=== PATIENT | female | born 1985 | race Caucasian/White ===

== ENCOUNTER 2017-05-07 01:11 | Inpatient (IN) | payer OTHER ==
[~2017-05-07] VITALS: Ht 177.8 cm; Wt 89.4 kg
[2017-05-07] MEDS ORDERED: Lactated Ringer's 1,000 ML IV PRN (08:21)
[2017-05-07] MEDS ORDERED: fentaNYL-PF 50 mCg/mL 2 mL Inj IVPUSH PRN ×2 (08:25→23:00)
[2017-05-07] MEDS ORDERED: Sodium Chloride LOK Flush 10 mL Syringe IVFLUSH PRN (08:25)
[2017-05-07] MEDS ORDERED: Oxytocin 30 Units/500 mL LR 30 UNITS in IV Premix 1 EACH IV PRN (08:25)
[2017-05-07] MEDS ORDERED: Carboprost 250 mCg/mL Inj IM PRN (08:25)
[2017-05-07] MEDS ORDERED: Penicillin G K Inj 5,000,000 UNITS in Dextrose 5% Minibag Plus 100 ML IV ONE (08:25)
[2017-05-07] MEDS ORDERED: Ondansetron 2 mg/mL 2 mL Inj IVPUSH PRN ×2 (08:25→23:00)
[2017-05-07] MEDS ORDERED: Oxytocin 10 Unit/mL Inj IM PRN (08:25)
[2017-05-07] MEDS ORDERED: Hemorrhage Kit, Post Partum XX ONE (08:25)
[2017-05-07] MEDS ORDERED: Methylergonovine 0.2 mg/mL Inj IM PRN (08:25)
[2017-05-07 08:40] LABS: Mean Corpuscular Volume 89.3 fL (81-100)
[2017-05-07] MEDS: Lactated Ringer's 1,000 ML IV SCH ×3 (08:40→20:02)
[2017-05-07] MEDS ORDERED: Misoprostol 25 mCg/0.25 Tablet ONE ×2 (08:53→13:11)
[2017-05-07] MEDS ORDERED: Penicillin G K Inj 3,000,000 UNITS in IV Premix 1 EACH IV SCH (12:30)
[2017-05-07] MEDS ORDERED: Misoprostol 25 mCg/0.25 Tablet VAGINAL SCH ×2 (13:30)
[2017-05-07] MEDS ORDERED: Lactated Ringer's 1,000 ML IV SCH (22:56)
[2017-05-07] MEDS ORDERED: Lactated Ringer's 500 ML IV ONE (22:56)
[2017-05-07] MEDS ORDERED: EPHEDrine Sulfate 50 mg/mL Inj IVPUSH PRN (23:00)
[2017-05-07] MEDS ORDERED: Atropine 1 mg/10 mL (Code) Syringe IVPUSH PRN (23:00)
[2017-05-07] MEDS ORDERED: fentaNYL 2 mCg/mL-Bupiv 0.125% 100 ML EPIDURAL SCH (23:00)
[2017-05-08] MEDS ORDERED: Penicillin G K Inj 5,000,000 UNITS in Dextrose 5% Minibag Plus 100 ML IV ONE (00:25)
[2017-05-08] MEDS ORDERED: Sodium Chloride LOK Flush 10 mL Syringe IVFLUSH SCH (00:30)
--- NOTE | 2017-05-08 01:00 | PCM.HPANE ---
Patient Data Date of Service: May 08, 2017 Surgeon Admitting Provider:Armen Swan MD Attending Provider:Armen Swan MD Primary Care Physician:Alicja Swan MD Other Provider: Reason for Visit Induction INDUCTION Ht/WT & BMI Body Mass Index Allergies Coded Allergies: No Known Allergies (Unverified , 05/07/17) Past Anesthesia History Anesthesia History: Denies:: Anesthesia Reactions, Fam Anesthesia Reaction Medications Hypertension Medication: No Home Meds Incl Beta Elyssa: No History History of ENT Problems?: No HEENT History: Denies:: Abnormal Airway Denture Type: None Teeth Condition: Within Normal Limits Hx of Heart Problems?: No Cardiovascular History: Denies:: Hypertension Other History/Comments Some elevated bp at term Hx of Respiratory Problem?: No Respiratory History: Denies:: Asthma Hx Neurologic Problems?: No Hx of GI Problems?: No Hx of Problems?: No Female Hx: Positive for:: Currently Hx Musculoskeletal Problems?: No Hx of Psycho/Social Problems?: No Hx Surgeries?: No Hx Any Other Health Problems?: No Smoking Status: Never Smoker Stop/Bang Risk Assessment Category Category 1A: Patient has history of documented sleep apnea, and HAS NOT received any narcotic, sedative or anesthesia administration during this stay. Category 1B: Patient has history of documented sleep apnea, and HAS received any narcotic , sedative or anesthesia administration during this stay Category 2: Patient has SUSPECTED Obstructive Sleep Apnea, and HAS received any narcotic , sedative or anesthesia administration during this stay. Category 3: Patient has SUSPECTED Obstructive Sleep Apnea and HAS NOT received narcotic, sedative or anesthesia administration during this stay. Category 4: Outpatient in Procedural Areas with known sleep apnea or who screen positive for High Risk via the STOP/BANG questionnaire. Exam Exam General Appearance: Alert, Oriented X3, Cooperative, No Acute Distress HEENT/AIRWAY: MP 2 Lungs: Clear to Auscultation, Normal Air Movement Heart: Exam Unremarkable, Regular Rate/Rhythm, No Murmurs/Rubs/Gallops Meds/Labs/Diagnostics Admission Meds Current Medications Lactated Ringer's (Lr) 1,000 ml @ 125 mls/hr Q8H IV Last administered on 20:02; Start 05/07/17 at 08:40 Misoprostol (Cytotec) 25 mcg STK-MED ONCE .ROUTE Last administered on 09:08; Start 05/07/17 at 08:53; Stop 05/07/17 at 08:54; Status DC Misoprostol (Cytotec) 25 mcg Q3H VAGINAL Last administered on 05/07/17 13:37; Start 05/07/17 at 13:30 Labs Test 05/07/17 07:45 White Blood Count 7.0th/mm3 (3.8-10.1) Red Blood Count 4.20mil/mm3 (3.90-5.20) Hemoglobin 13.0g/dL (12.0-15.6) Hematocrit 37.5% (35.0-46.0) Mean Corpuscular Volume 89.3fL (81-100) Mean Corpuscular Hemoglobin 31.0pg (27.0-35.0) Mean Corpuscular Hemoglobin Concent 34.7% (32.0-37.0) Red Cell Distribution Width 13.0% (12.3-15.4) Platelet Count 137bil/L (150-400) Plan Impression Patient chart reviewed, patient interviewed and anesthestic plan with risks, benefits, and alternatives discussed, and informed consent obtained. NPO per Anesth. Guidelines: Yes ASA Physical Status: ASA2 Mod Systemic Disease Anesthetic Plan: Epidural Bene/Risks/Altern/Consents: Yes HP Complete Prior to Induction: Yes Pietro Quinonez MD May 07, 2017 22:56
[2017-05-08] MEDS ORDERED: Penicillin G K Inj 3,000,000 UNITS in IV Premix 1 EACH IV SCH (04:30)
[2017-05-08] MEDS ORDERED: Lactated Ringer's 1,000 ML IV SCH (08:54)
[2017-05-08] MEDS ORDERED: Carboprost 250 mCg/mL Inj IM PRN (08:55)
[2017-05-08] MEDS ORDERED: Oxytocin 10 Unit/mL Inj IM PRN (08:55)
[2017-05-08] MEDS ORDERED: Oxytocin 30 Units/500 mL LR 30 UNITS in IV Premix 1 EACH IV PRN (08:55)
[2017-05-08] MEDS ORDERED: Benzocaine (Dermoplast) 20% 60 Gm Spray TOPICAL PRN (08:55)
[2017-05-08] MEDS ORDERED: LANOlin HPA 7 Gm Ointment TOPICAL PRN (08:55)
[2017-05-08] MEDS ORDERED: Methylergonovine 0.2 mg/mL Inj IM PRN (08:55)
[2017-05-08] MEDS ORDERED: Hemorrhage Kit, Post Partum XX ONE (08:55)
[2017-05-08] MEDS ORDERED: HYDROcodone-APAP 5-325 mg Tablet PO PRN (08:55)
--- NOTE | 2017-05-08 09:22 | OP ---
[address] [address] OPERATIVE REPORT PATIENT: JUSTINA DEL RIO : 1985 MR#: [id number] ADMIT: 05/07/2017 JOB ID: [id number] DATE OF SURGERY: 05/08/2017 TIME: 8:25 a.m. PREOPERATIVE DIAGNOSIS(ES): POSTOPERATIVE DIAGNOSIS(ES): SURGEON: Armen Swan MD. DELIVERY SUMMARY: This 31-year-old, G1, P0 now P1, female at 42 weeks and three days estimated gestational age delivered a vigorous male by normal vaginal delivery with Apgars of 9 and 9. The patient presented for induction due to post dates. She was given Cytotec for two doses and this finally kicked in and she started clarice every 1-3 minutes. The baby tolerated these contractions. The patient progressed on her own without any additional Pitocin to 3 cm. At this point, she required an epidural due to how often the contractions were occurring and due to the fact that it was late at night and she needed rest. The epidural was highly effective and did not prevent her from progressing or later pushing. The patient did receive two doses of antibiotics nicely spaced. It was unclear when she actually ruptured her membranes spontaneously but it was probably in the bathtub given that we did not ever get a full rupture while she was in her bed. The fluid throughout was clear. The patient was afebrile throughout her labor. She did have some additional bleeding when she was 8-9 cm but that stopped on its own. There were no other signs of abruption. We labored the patient down to about +1 to +2 station, and she pushed for an hour very effectively. She pushed across a second-degree midline perineal laceration. This was repaired in the usual fashion with 3-0 chromic suture. No additional lidocaine was necessary. The was delivered up and onto her abdomen, where delayed cord clamping was observed. Once the cord stopped pulsing, the cord was clamped and cut. Cord blood was sent for analysis. The placenta delivered approximately 5 minutes later after the delivered. It delivered spontaneously and intact with a three-vessel cord. Pitocin was run at 500 cc an hour. The patient's total blood loss was 200 to 300 cc. The counts were correct x3. The patient's uterus was firm, her cervix intact and her rectum intact. She was in excellent condition.
[2017-05-08] MEDS: Witch Hazel-Glycerin Pads TOPICAL PRN ×2 (09:52→23:46)
[2017-05-08] MEDS: Ascorbic Acid 500 mg Tablet PO SCH (18:54)
[2017-05-09 07:07] LABS: Mean Corpuscular Hemoglobin 31.1 pg (27.0-35.0); Mean Corpuscular Volume 91.2 fL (81-100)
[2017-05-09] MEDS: Ascorbic Acid 500 mg Tablet PO SCH (10:20)
--- NOTE | 2017-05-09 13:29 | PCM.DC.OB ---
Obstetrical Discharge Summary Date of Service May 09, 2017 Date of hospital admission May 07, 2017 at 07:09 Date of Discharge: May 09, 2017 Providers Admitting Physician: Armen Swan MD Primary Care Physician: Alicja Swan MD Attending Physician: Armen Swan MD Problems: (1) Status post normal vaginal delivery Status: Acute ICD Code: [id number] Consultations None Invasive procedures Induction, epidural, NVD Date of Procedure: May 08, 2017 Hospital Course: Patient induced and delivered in normal fashion. Recovered in normal fashion. Discharge Diet: No restrictions Discharge Activity-General: Pelvic Rest for 6 weeks, Try not to overdue, Be up and about, Activity as pain allows, Activity as energy allows, No lifting >15 pounds for 2 weeks Armen Swan MD May 09, 2017 13:29
--- NOTE | 2017-05-09 13:31 | PCM.DIOB ---
Obstetrical Disch Instruction Date of Service: May 09, 2017 Dates of Hospitalization Date of Hospital Admission May 07, 2017 at 07:09 Providers Admitting Physician: Armen Swan MD Primary Care Physician: Alicja Swan MD Attending Physician: Armen Swan MD Discharge Diagnosis Problems: (1) Status post normal vaginal delivery Status: Acute ICD Code: [id number] Diet Discharge Diet: No restrictions Activity Discharge Activity-General: Pelvic Rest for 6 weeks, Try not to overdue, Be up and about, Balance rest and activity, Activity as pain allows, Activity as energy allows, No lifting >15 pounds for 2 weeks Dressing and Incisional Care Hygiene: May shower, Perineal care, Sitz bath, Dermoplast spray, Witch Maria Elena pads Follow Up Plan Follow-up Provider (F9): Armen Swan MD Follow-up appointment: Weeks (8) Call your provider for: Fever or Chills, Heavy vaginal bleeding, Excessive constipation, Vaginal discomfort, Red painful breasts Armen Swan MD May 09, 2017 13:31
[2017-05-09] MEDS ORDERED: IBUP800T28 PO (13:32)
[2017-05-09] MEDS ORDERED: HYDR-4003 PO (13:32)
[2017-05-09 13:56] VITALS: BP 130/70; PULSE 68; RESP 16
== END 2017-05-09 16:00 | disposition home or self-care (01) | DRG 775 ==
LOC: FBC 07:09
PROVIDERS: ADMIT Family Medicine; ATTEND Family Medicine
PROC: 10E0XZZ Delivery of Products of Conception, External Approach (ICD-10-PCS; principal; 2017-05-08)
PROC: 0KQM0ZZ Repair Perineum Muscle, Open Approach (ICD-10-PCS; 2017-05-08)
PROC: 3E0P7GC Introduction of Other Therapeutic Substance into Female Reproductive, Via Natural or Artificial Opening (ICD-10-PCS; 2017-05-08)
DX: O70.1 Second degree perineal laceration during delivery (principal); Z37.0 Single live birth; O48.0 Post-term pregnancy; Z3A.42 42 weeks gestation of pregnancy